=== PATIENT | female | born 1945 | race Caucasian/White ===

== ENCOUNTER 2016-11-22 18:00 | Emergency (ER) | payer OTHER ==
[~2016-11-22 18:00] MED LIST: ASPI81TA82 PO; HYDR-3533 PO; IBUP-232 PO; LEVO.025 PO; OMEP20TA PO; PROM25SU8 PO; TAMS0.4C67 PO; [UNRECOGNIZED DRUG - CODE] PO
[2016-11-22 18:02] VITALS: BP 139/75; PULSE 90; RESP 20; TEMP 98.7; O2SAT 99
--- NOTE | 2016-11-22 18:11 | PD ---
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, NONRADIATING AT THIS MOMENT...DENIES FEVER/CP/[place]/D/ ......FEELS SIMILAR TO HER PREVIOUS KIDNEY STONE PFSH Past Medical History Hx Anticoagulant Therapy: No Cardiovascular Problems: No Chemotherapy: No Cerebrovascular Accident: No Diabetes: No Diminished Hearing: No Respiratory: No Immunizations Current: Yes Thyroid Disease: Yes ?: Not Past Surgical History Hysterectomy: Yes Social History Alcohol Use: Yes (RARELY, WINE LAST NIGHT) Tobacco Use: Yes (1/2 PPD) Substance Use: No Allergies-Medications (Allergen,Severity, Reaction): Coded Allergies: Morphine (Verified Allergy, Severe, Rash, 11/22/16) Reported Meds & Prescriptions Reported Meds & Active Scripts Active Zofran Odt (Ondansetron Odt) 4 Mg Tab 4 Mg SL Q6HR PRN Lortab (Hydrocodone-Acetaminophen) 5-325 Mg Tab 1 Tab PO Q6H PRN Motrin Ib (Ibuprofen) 200 Mg Tablet 600 Mg PO QID PRN Bactrim DS (Sulfamethoxazole-Trimethoprim) 800-160 Mg Tab 1 Tab PO BID Reported Once Daily (Multivitamin) 1 Each Tablet [Hormone] Hydrea (Hydroxyurea) 500 Mg Cap Unknown Dose PO DAILY Levothyroxine (Levothyroxine Sodium) 25 Mcg Tab Unknown Dose PO DAILY Review of Systems Except as stated in HPI: all other systems reviewed are Neg Gastrointestinal: Positive: Abdominal Pain Genitourinary: Positive: Flank Pain Physical Exam Narrative GENERAL: SKIN: Warm and dry. HEAD: Atraumatic. Normocephalic. EYES: Pupils equal and round. No scleral icterus. No injection or drainage. ENT: No nasal bleeding or discharge. Mucous membranes pink and moist. NECK: Trachea midline. No JVD. CARDIOVASCULAR: Regular rate and rhythm. RESPIRATORY: No accessory muscle use. Clear to auscultation. Breath sounds equal bilaterally. GASTROINTESTINAL: Abdomen soft, non-tender, nondistended. Hepatic and splenic margins not palpable. MUSCULOSKELETAL: Extremities without clubbing, cyanosis, or edema. No obvious deformities. NEUROLOGICAL: Awake and alert. No obvious cranial nerve deficits. Motor grossly within normal limits. Five out of 5 muscle strength in the arms and legs. Normal speech. PSYCHIATRIC: Appropriate mood and affect; insight and judgment normal. Data Data Last Documented VS Orders Complete Blood Count With Diff (11/22/16 18:12) Comprehensive Metabolic Panel (11/22/16 18:12) Urinalysis - C+S If Indicated (11/22/16 18:12) Ct Abd/Pel W/O Iv Contrast (11/22/16 18:12) Ecg Monitoring (11/22/16 18:12) Iv Access Insert/Monitor (11/22/16 18:12) Ketorolac Inj (Toradol Inj) (11/22/16 18:15) Ondansetron Inj (Zofran Inj) (11/22/16 18:15) Sodium Chloride 0.9% Flush (Ns Flush) (11/22/16 18:15) Sodium Chlor 0.9% 1000 Ml Inj (Ns 1000 M (11/22/16 18:29) Hydromorphone Pf Inj (Dilaudid Pf Inj) (11/22/16 19:45) Urine Culture (11/22/16 20:15) MDM Medical Decision Making Medical Screen Exam Complete: Yes Emergency Medical Condition: Yes Medical Record Reviewed: Yes Differential Diagnosis KIDNEY STONE V GALLSTONE V LIVER/PANCREAS DYSFUNCTION Narrative Course pt found to have hematuria, but with normal kidney functtion, ct shows a 4mm stone on rught uvj region about to enter bladder Diagnosis Primary Impression: Acute right flank pain Additional Impression: Renal colic on right side Scripts Ondansetron Odt (Zofran Odt)4 Mg Tab4 Mg SL Q6HR PRN (Nausea/Vomiting) #7 TAB Ref 0 Prov:Lacho Siu MD 11/22/16 Hydrocodone-Acetaminophen (Lortab)5-325 Mg Tab1 Tab PO Q6H PRN (PAIN) #15 TAB Ref 0 Prov:Lacho Siu MD 11/22/16 Ibuprofen (Motrin Ib)200 Mg [id number] Mg PO QID PRN (PAIN SCALE 1 TO 10) #20 Prov:Lacho Siu MD 11/22/16 Sulfamethoxazole-Trimethoprim (Bactrim DS)800-160 Mg Tab1 Tab PO BID #14 TAB Ref 0 Prov:Lacho Siu MD 11/22/16 Disposition: 01 DISCHARGE HOME Condition: Stable Ochoa Zavala MD Nov 22, 2016 18:11
[2016-11-22] MEDS ORDERED: ONCETAB7 (18:13)
[2016-11-22] MEDS ORDERED: HYDR500C PO (18:13)
[2016-11-22] MEDS ORDERED: HORMONE (18:13)
[2016-11-22] MEDS ORDERED: LEVO25TA4 PO (18:13)
[2016-11-22] MEDS ORDERED: ONDANSETRON HCL 4 MG/2 ML VIAL IVP ONE (18:15)
[2016-11-22] MEDS ORDERED: KETOROLAC TROMETHAMINE 30 MG/ML (IVP) VIAL IVP ONE (18:15)
[2016-11-22] MEDS ORDERED: SODIUM CHLORIDE 0.9% FLUSH 10 ML FLUSH IVF PRN (18:15)
[2016-11-22] MEDS ORDERED: SODIUM CHLOR 0.9% 1000 ML INJ 1,000 ML IV ONE (18:29)
[2016-11-22 18:41] LABS: AUTOMATED NEUTROPHIL # 6.1 TH/MM3 (1.8-7.7); BASOPHIL # 0.1 TH/MM3 (0-0.2); BASOPHIL % 1.4 % (0.0-2.0); EOSINOPHIL # 0.1 TH/MM3 (0-0.4); EOSINOPHIL % 1.1 % (0.0-4.0); HEMATOCRIT 43.5 % (35.0-46.0); LYMPH % 23.4 % (9.0-44.0); LYMPHOCYTE # 2.1 TH/MM3 (1.0-4.8); MEAN CELL VOLUME 97.7 FL (80.0-100.0); MEAN CORPUSCULAR HEMOGLOBIN 32.4 PG (27.0-34.0); MEAN CORPUSCULAR HGB CONC 33.2 % (32.0-36.0); MONO % 5.8 % (0.0-8.0); NEUT % 68.3 % (16.0-70.0); PLATELET COUNT 833 TH/MM3 (150-450); RED BLOOD COUNT 4.46 MIL/MM3 (4.00-5.30); RED CELL DISTRIBUTION WIDTH 12.4 % (11.6-17.2); WHITE BLOOD COUNT 8.9 TH/MM3 (4.0-11.0)
[2016-11-22 18:51] LABS: CHLORIDE 107 MEQ/L (98-107); POTASSIUM 3.9 MEQ/L (3.5-5.1); SODIUM (NA) 141 MEQ/L (136-145)
[2016-11-22 18:55] LABS: ANION GAP 6 MEQ/L (5-15); BICARBONATE 27.6 MEQ/L (21.0-32.0); BLOOD UREA NITROGEN 24 MG/DL (7-18)
[2016-11-22 18:58] LABS: ALT (GPT) 17 U/L (10-53); AST (GOT) 17 U/L (15-37); GLOMERULAR FILTRATION RATE 63 ML/MIN (>89)
[2016-11-22 18:59] LABS: TOTAL BILIRUBIN ADULT 0.3 MG/DL (0.2-1.0)
[2016-11-22 19:01] LABS: ALKALINE PHOSPHATASE 55 U/L (45-117)
[2016-11-22 19:02] LABS: HEMO FLAGS AUTO DIFF
--- NOTE | 2016-11-22 19:21 | RADRPT ---
EXAM DATE/TIME: 11/22/2016 18:45 [facility] COMPARISON: CT ABDOMEN & PELVIS W/O CONTRAST, January 27, 2015, 3:50. INDICATIONS : Right flank pain. ORAL CONTRAST: No oral contrast ingested. RADIATION DOSE: 10.76 CTDIvol (mGy) MEDICAL HISTORY : None SURGICAL HISTORY : Hysterectomy. ENCOUNTER: Initial ACUITY: 2 days PAIN SCALE: 10/10 LOCATION: Right flank TECHNIQUE: Renal colic protocol. Volumetric scanning of the abdomen and pelvis was performed. Using automated exposure control and adjustment of the mA and/or kV according to patient size, radiation dose was kep t as low as reasonably achievable to obtain optimal diagnostic quality images. DICOM format image da ta is available electronically for review and comparison. FINDINGS: Right side: Moderate dilation of the collecting system of the right kidney and moderate dilation of the right ure ter to the ureterovesical junction. 4 mm stone causing obstruction at the right UVJ. There are dona ral tiny calcified stones in the mid lower pole of the right kidney, the largest is in the lower pole measuring 2 mm. Left side: Several tiny nonobstructing stones measuring less than 2 mm similar in appearance to prior CT in 2014. No evidence of hydronephrosis. Left ureter is normal in dimension without calcified stone . Bladder: Smooth margins. No calcifications within the lumen. Other: Moderate amount of stool throughout the colon. No dilated loops of small bowel. No calcified gallst ones. Arteriosclerotic calcification in the aorta and iliac vessels. CONCLUSION: 1. 4 mm calcified stone at the right ureterovesical junction causing moderate hydroureter and hydrone phrosis. 2. Numerous bilateral less than 2 mm stones in both kidneys. No left-sided hydronephrosis. Alcon Mccullough MD on November 22, 2016 at 19:15 Board Certified Radiologist. This report was verified electronically.
[2016-11-22 19:23] LABS: PLATELET ESTIMATE SMEAR HIGH (NORMAL); PLATELET MORPHOLOGY NORMAL (NORMAL); SCAN/DIFF AUTO DIFF CONFIRMED
[2016-11-22] MEDS ORDERED: HYDROmorphone HCL PF 1 MG/ML VIAL IV PUSH ONE (19:45)
[2016-11-22 20:00] VITALS: BP 125/60; PULSE 75; RESP 20; O2SAT 99
[2016-11-22 20:26] VITALS: RESP 16
[2016-11-22 20:37] LABS: BLOOD, URINE TRACE (NEG); GLUCOSE,URINE NEG (NEG); KETONE, URINE NEG (NEG); NITRITE,URINE NEG (NEG)
[2016-11-22 20:59] LABS: MUCUS URINE MOD /lpf (OCC); URINE COLOR YELLOW (YELLW/STRAW)
[2016-11-22 21:00] LABS: SQUAMOUS EPITHELIAL CELL URINE > 8 /hpf (0-5)
[2016-11-22 21:02] LABS: COMMENT (UR) CULTURE INDICATED; CULTURE IF INDICATED CULTURE INDICATED
[2016-11-22] MEDS ORDERED: HYDR-3533 PO (21:07)
[2016-11-22] MEDS ORDERED: IBUP-1129 PO (21:07)
[2016-11-22] MEDS ORDERED: BACT800T5 PO (21:07)
[2016-11-22] MEDS ORDERED: ZOFR4TAB3 SL (21:07)
--- NOTE | 2016-11-22 21:07 | PD ---
Physical Exam Date Seen by Provider: Nov 22, 2016 Time Seen by Provider: 19:00 Narrative Patient was initially seen and evaluated by Dr. Zavala, please see please see previous notes for further details. Signed out to me awaiting CAT scan and workup. Laboratory Tests Test 11/22/16 11/22/16 18:30 20:15 Platelet Count 833 TH/MM3 (150-450) Platelet Estimate HIGH (NORMAL) Blood Urea Nitrogen 24 MG/DL (7-18) Estimat Glomerular Filtration 63 ML/MIN (>89) Rate Random Glucose 116 MG/DL (74-106) Urine Occult Blood TRACE (NEG) Urine Leukocyte Esterase SMALL (NEG) Urine RBC 4-9 /hpf (0-3) Urine WBC 50-99 /hpf (0-5) Urine Squamous Epithelial > 8 /hpf (0-5) Cells Urine Mucus MOD /lpf (OCC) Last 24 hours Impressions Abdomen/Pelvis CT 11/22/161811 Signed Impressions: Service Date/Time: Tuesday, November 22, 2016 18:45 - CONCLUSION: 1. 4 mm calcified stone at the right ureterovesical junction causing moderate hydroureter and hydronephrosis. 2. Numerous bilateral less than 2 mm stones in both kidneys. No left-sided hydronephrosis. Alcon Mccullough MD CAT scan is showing a 4 mm stone at the right UVJ. UA shows blood and white blood count indicative of underlying UTI. There is no significant leukocytosis otherwise. At this point, it appears that the kidney stone is most likely cause her pain and my plan would be to release her with symptomatic relief or pain. I will treat her for a possible UTI as well. She will need to follow-up with her urologist regarding this issue. Return for any worsening in pain, fevers, vomiting, or new symptoms as needed. The plan has been discussed with the patient and family and they state understanding. Data Data Last Documented VS Vital Signs Date Time Temp Pulse Resp B/P Pulse Ox O2 Delivery O2 Flow Rate FiO2 11/22/16 20:26 16 11/22/16 20:00 75 125/60 99 Room Air 11/22/16 18:02 98.7 Orders Complete Blood Count With Diff (11/22/16 18:12) Comprehensive Metabolic Panel (11/22/16 18:12) Urinalysis - C+S If Indicated (11/22/16 18:12) Ct Abd/Pel W/O Iv Contrast (11/22/16 18:12) Ecg Monitoring (11/22/16 18:12) Iv Access Insert/Monitor (11/22/16 18:12) Ketorolac Inj (Toradol Inj) (11/22/16 18:15) Ondansetron Inj (Zofran Inj) (11/22/16 18:15) Sodium Chloride 0.9% Flush (Ns Flush) (11/22/16 18:15) Sodium Chlor 0.9% 1000 Ml Inj (Ns 1000 M (11/22/16 18:29) Hydromorphone Pf Inj (Dilaudid Pf Inj) (11/22/16 19:45) Labs Laboratory Tests Test 11/22/16 11/22/16 18:30 20:15 White Blood Count 8.9 TH/MM3 Red Blood Count 4.46 MIL/MM3 Hemoglobin 14.5 GM/DL Hematocrit 43.5 % Mean Corpuscular Volume 97.7 FL Mean Corpuscular Hemoglobin 32.4 PG Mean Corpuscular Hemoglobin 33.2 % Concent Red Cell Distribution Width 12.4 % Platelet Count 833 TH/MM3 Mean Platelet Volume 8.5 FL Neutrophils (%) (Auto) 68.3 % Lymphocytes (%) (Auto) 23.4 % Monocytes (%) (Auto) 5.8 % Eosinophils (%) (Auto) 1.1 % Basophils (%) (Auto) 1.4 % Neutrophils # (Auto) 6.1 TH/MM3 Lymphocytes # (Auto) 2.1 TH/MM3 Monocytes # (Auto) 0.5 TH/MM3 Eosinophils # (Auto) 0.1 TH/MM3 Basophils # (Auto) 0.1 TH/MM3 CBC Comment AUTO DIFF Differential Comment AUTO DIFF CONFIRMED Platelet Estimate HIGH Platelet Morphology Comment NORMAL Red Cell Morphology Comment NORMAL Sodium Level 141 MEQ/L Potassium Level 3.9 MEQ/L Chloride Level 107 MEQ/L Carbon Dioxide Level 27.6 MEQ/L Anion Gap 6 MEQ/L Blood Urea Nitrogen 24 MG/DL Creatinine 0.89 MG/DL Estimat Glomerular Filtration 63 ML/MIN Rate Random Glucose 116 MG/DL Calcium Level 9.1 MG/DL Total Bilirubin 0.3 MG/DL Aspartate Amino Transf 17 U/L (AST/SGOT) Alanine Aminotransferase 17 U/L (ALT/SGPT) Alkaline Phosphatase 55 U/L Total Protein 7.1 GM/DL Albumin 3.8 GM/DL Urine Color YELLOW Urine Turbidity SLIGHT Urine pH 6.0 Urine Specific [place] 1.018 Urine Protein NEG mg/dL Urine Glucose (UA) NEG mg/dL Urine Ketones NEG mg/dL Urine Occult Blood TRACE Urine Nitrite NEG Urine Bilirubin NEG Urine Leukocyte Esterase SMALL Urine RBC 4-9 /hpf Urine WBC 50-99 /hpf Urine Squamous Epithelial > 8 /hpf Cells Urine Amorphous Sediment SMALL Urine Mucus MOD /lpf Microscopic Urinalysis Comment CULTURE INDICATED MDM Medical Record Reviewed: Yes Supervised Visit with GANESH: No Diagnosis Primary Impression: Acute right flank pain Additional Impressions: Renal colic on right side UTI (urinary tract infection) Med/Other Pt SpecificInfo: Prescription(s) given Scripts Ondansetron Odt (Zofran Odt)4 Mg Tab4 Mg SL Q6HR PRN (Nausea/Vomiting) #7 TAB Ref 0 Prov:Lacho Siu MD 11/22/16 Hydrocodone-Acetaminophen (Lortab)5-325 Mg Tab1 Tab PO Q6H PRN (PAIN) #15 TAB Ref 0 Prov:Lacho Siu MD 11/22/16 Ibuprofen (Motrin Ib)200 Mg [id number] Mg PO QID PRN (PAIN SCALE 1 TO 10) #20 Prov:Lacho Siu MD 11/22/16 Sulfamethoxazole-Trimethoprim (Bactrim DS)800-160 Mg Tab1 Tab PO BID #14 TAB Ref 0 Prov:Lacho Siu MD 11/22/16 Disposition: 01 DISCHARGE HOME Condition: Stable Lacho Siu MD Nov 22, 2016 21:07
[2016-11-22 22:01] VITALS: BP 120/64
== END 2016-11-22 22:18 | disposition home or self-care (01) ==
LOC: PHED 18:00
DX: N39.0 Urinary tract infection, site not specified (principal); B96.89 Other specified bacterial agents as the cause of diseases classified elsewhere; N13.2 Hydronephrosis with renal and ureteral calculous obstruction; F17.200 Nicotine dependence, unspecified, uncomplicated
CPT/HCPCS: 74176; 80053; 81001; 85025; 87086; 96361; 96374; 96375; 99285; J1170; J1885; J2405; J7030

== ENCOUNTER 2017-08-30 20:39 | Emergency (ER) | payer OTHER ==
[2017-08-30] MEDS ORDERED: SODIUM CHLORIDE 0.9% FLUSH 10 ML FLUSH IV FLUSH (22:00)
[2017-08-30] MEDS: SODIUM CHLOR 0.9% 1000 ML INJ 1,000 ML IV (22:32)
[2017-08-30] MEDS: ONDANSETRON HCL 4 MG/2 ML VIAL IVP (22:33)
[2017-08-30 22:49] LABS: AUTOMATED NEUTROPHIL # 6.2 TH/MM3 (1.8-7.7); BASOPHIL % 0.4 % (0.0-2.0); EOSINOPHIL % 0.5 % (0.0-4.0); HEMATOCRIT 49.7 % (35.0-46.0); HEMOGLOBIN 17.6 GM/DL (11.6-15.3); LYMPH % 3.8 % (9.0-44.0); LYMPHOCYTE # 0.3 TH/MM3 (1.0-4.8); MEAN CELL VOLUME 104.1 FL (80.0-100.0); MEAN CORPUSCULAR HEMOGLOBIN 36.9 PG (27.0-34.0); MEAN CORPUSCULAR HGB CONC 35.5 % (32.0-36.0); MEAN PLATELET VOLUME 8.8 FL (7.0-11.0); MONOCYTE # 0.5 TH/MM3 (0-0.9); NEUT % 88.3 % (16.0-70.0); PLATELET COUNT 493 TH/MM3 (150-450); RED BLOOD COUNT 4.78 MIL/MM3 (4.00-5.30); RED CELL DISTRIBUTION WIDTH 13.6 % (11.6-17.2)
[2017-08-30 22:50] LABS: HEMO FLAGS DIFF FINAL
[2017-08-30 22:56] LABS: CHLORIDE 108 MEQ/L (98-107); POTASSIUM 4.2 MEQ/L (3.5-5.1); SODIUM (NA) 141 MEQ/L (136-145)
[2017-08-30 22:59] LABS: CALCIUM 9.4 MG/DL (8.5-10.1)
[2017-08-30 23:00] LABS: ALBUMIN 4.1 GM/DL (3.4-5.0); ANION GAP 4 MEQ/L (5-15); BICARBONATE 28.9 MEQ/L (21.0-32.0); BLOOD UREA NITROGEN 21 MG/DL (7-18); GLUCOSE,RANDOM 120 MG/DL (74-106); LIPASE 242 U/L (73-393)
[2017-08-30 23:03] LABS: ALT (GPT) 18 U/L (10-53); AST (GOT) 20 U/L (15-37); CREATININE 0.97 MG/DL (0.50-1.00); GLOMERULAR FILTRATION RATE 57 ML/MIN (>89)
[2017-08-30 23:04] LABS: TOTAL BILIRUBIN ADULT 0.4 MG/DL (0.2-1.0); TOTAL PROTEIN 7.8 GM/DL (6.4-8.2)
[2017-08-30 23:05] LABS: ALKALINE PHOSPHATASE 57 U/L (45-117)
== END 2017-08-30 23:36 | disposition home or self-care (01) ==
LOC: PHED 20:39
DX: E07.9 Disorder of thyroid, unspecified (principal); R11.2 Nausea with vomiting, unspecified; R19.7 Diarrhea, unspecified
CPT/HCPCS: 80053; 83690; 85025; 96361; 96374; 99284-25